=== PATIENT | female | born 1995 | race Caucasian/White ===

== ENCOUNTER → 2020-07-13 | Outpatient (CLI) | payer OTHER | LOC: LAB 12:02 | DX: Z32.00 Encounter for pregnancy test, result unknown (principal) | CPT/HCPCS: 36415; 84702; 86900; 86901 ==

== ENCOUNTER → 2020-07-20 | Outpatient (CLI) | payer OTHER | LOC: LAB 16:36 | DX: O03.9 Complete or unspecified spontaneous abortion without complication (principal) | CPT/HCPCS: 36415; 84702 ==

== ENCOUNTER 2020-09-14 20:38 | Emergency (ER) | payer OTHER ==
[2020-09-14 21:34] LABS: BUN/CREATININE RATIO 11 (0-10)
[2020-09-14 22:24] LABS: RED BLOOD COUNT 4.62 M/UL (4.00-5.10); WHITE BLOOD COUNT 12.7 K/UL (4.5-11.0)
== END 2020-09-14 23:23 | disposition home or self-care (01) ==
LOC: ER1 20:38
PROVIDERS: Physician Assistant
DX: R04.0 Epistaxis (principal); R51.9 Headache, unspecified; F17.200 Nicotine dependence, unspecified, uncomplicated; Z88.0 Allergy status to penicillin
CPT/HCPCS: 70450; 80053; 84703; 85025; 85610; 85730; 99284

== ENCOUNTER 2021-03-06 17:00 | Emergency (ER) | payer OTHER ==
[2021-03-06 19:17] LABS: HEMOGLOBIN 14.4 gm/dl (12.3-15.3); RED BLOOD COUNT 5.06 M/UL (4.00-5.10); WHITE BLOOD COUNT 8.3 K/UL (4.5-11.0)
[2021-03-06 21:22] LABS: BUN/CREATININE RATIO 12 (0-10)
[2021-03-06] MEDS ORDERED: BENZONATATE100 MG PO (21:41)
== END 2021-03-06 21:47 | disposition home or self-care (01) ==
LOC: ER1 17:00
PROVIDERS: Physician Assistant Medical
DX: J40 Bronchitis, not specified as acute or chronic (principal); Z88.0 Allergy status to penicillin; J06.9 Acute upper respiratory infection, unspecified; Z20.822 Contact with and (suspected) exposure to COVID-19
CPT/HCPCS: 71045; 80053; 81001; 82550; 82553; 83874; 84484; 85025; 85379; 93005; 99284; Q9967; U0002